=== PATIENT | female | born 2000 | race African-American/Black ===

== ENCOUNTER 2021-12-08 16:35 | Emergency (ER) | payer BC, SELFPAY ==
[2021-12-09 19:23] LABS: SARS-CoV-2 PCR by NAA DETECTED (NotDetected)
== END 2021-12-08 17:30 | disposition home or self-care (01) ==
LOC: CSHERS 16:35
DX: U07.1 COVID-19 (principal)
CPT/HCPCS: 87081; 87430; 99283; U0003; U0005

== ENCOUNTER 2022-03-18 05:59 | Emergency (ER) | payer BC, SELFPAY | END 2022-03-18 06:49 | disposition home or self-care (01) | LOC: CSHERS 05:59 | DX: K12.2 Cellulitis and abscess of mouth (principal) | CPT/HCPCS: 99283 ==

== ENCOUNTER 2022-05-26 20:03 | Emergency (ER) | payer BC, SELFPAY | END 2022-05-26 20:55 | disposition home or self-care (01) | LOC: CSHERS 20:03 | DX: K08.89 Other specified disorders of teeth and supporting structures (principal) | CPT/HCPCS: 99283 ==

== ENCOUNTER 2022-12-26 09:42 | Emergency (ER) | payer SELFPAY | END 2022-12-26 10:59 | disposition home or self-care (01) | LOC: CSHERS 09:42 | DX: J06.9 Acute upper respiratory infection, unspecified (principal); Z20.822 Contact with and (suspected) exposure to COVID-19; G43.909 Migraine, unspecified, not intractable, without status migrainosus | CPT/HCPCS: 99284; U0003; U0005 ==

== ENCOUNTER 2024-01-14 16:01 | Emergency (ER) | payer OTHER ==
[2024-01-14] MEDS ORDERED: Ondansetron PF 4 MG/2 ML Vial ONE (16:33)
[2024-01-14 16:58] LABS: #Eosinphils 0.1 10x3/uL (0.0-0.5); #Monocytes 0.5 10x3/uL (0.0-1.1); #Neutrophils 2.1 10x3/uL (1.5-8.4); %Basophils 0.7 % (0.0-2.0); %Eosinophils 1.2 % (0.0-6.0); %Lymphocytes 55.2 % (18.0-47.0); %Monocytes 7.6 % (0.0-10.0); %Neutrophils 35.1 % (40.0-75.0); Hematocrit 39.3 % (34.9-44.5); Hemoglobin 13.4 g/dL (12.0-15.5); Mean Corpuscular HGB CONC 34.1 g/dL (32.0-36.0); Mean Corpuscular Hemoglobin 31.2 pg (27.0-33.0); Mean Corpuscular Volume 91.6 fl (81.6-98.3); Mean Platelet Volume 9.5 fl (7.4-10.4); Platelet Count 307 10x3/uL (150-450); RBC Distribution Width 12.4 % (11.5-14.5); Red Blood Cell (RBC) Count 4.29 10x6/uL (3.90-5.03); White Blood Cell (WBC) Count 6.1 10x3/uL (3.5-10.5)
[2024-01-14 16:59] LABS: Bilirubin Neg (Negative); Blood, Urine 10 (Negative); Clarity Clear (Clear); Glucose, Urine (Dipstick) Normal (Negative); Ketone, Urine Negative (Negative); Leukocyte Negative (Negative); Nitrite Negative (Negative); Protein, Urine (Dipstick) 30 mg/dl (Neg-Trace); Specific Gravity, Urine 1.015 (1.005-1.030); pH, Urine 6.5 (5.0-9.0)
[2024-01-14 17:01] LABS: Pregnancy Test - Urine (BHCG) Negative (Negative); Pregu Control Background? CLEAR/WHITE (CLR/WHITE); Pregu Control Bar Appear? YES (CONTROL BAR); Specific Gravity 1.015 (1.002-1.036)
[2024-01-14 17:12] LABS: ALT (SGPT) 19 U/L (8-55); AST (SGOT) 28 U/L (5-34); Albumin 4.6 g/dL (3.5-5.0); Alkaline Phosphatase 44 U/L (40-110); Anion Gap 11 mmol/L (10-20); BUN (Urea Nitrogen) 20 mg/dL (7.0-18.7); Bilirubin, Total 0.4 mg/dL (0.2-1.2); Calc. Creatinine Clearance 0 mL/min (70-130); Calcium 9.5 mg/dL (7.8-10.44); Carbon Dioxide 26 mmol/L (22-29); Chloride 105 mmol/L (98-107); Estimated GFR 77; Globulin 3.5 g/dL (2.4-3.5); Glucose 94 mg/dL (70-105); Lipase 30 U/L (8-78); Potassium 3.4 mmol/L (3.5-5.1); Protein, Total 8.1 g/dL (6.0-8.3); Sodium 139 mmol/L (136-145)
[2024-01-14 17:16] LABS: Bacteria/HPF Rare-Few HPF (None Seen); CAUTI Indications for Culture Pelvic or flank pain; Mucous/LPF 1+ LPF (<2+); RBC/HPF 0-3 HPF (0-3); Squamous Epithelial 0-3 HPF (0-3); WBC/HPF 0-3 HPF (0-3)
[2024-01-14 17:17] LABS: Urine Culture Reflex No No
== END 2024-01-14 17:31 | disposition home or self-care (01) ==
LOC: CSHERS 16:01
DX: A08.4 Viral intestinal infection, unspecified (principal); Z55.6 Problems related to health literacy
CPT/HCPCS: 80053; 81001; 81025; 83690; 85025; 96361; 96374; J2405

== ENCOUNTER 2024-12-17 09:15 | Emergency (ER) | payer BC, OTHER ==
[2024-12-17] MEDS ORDERED: Acetaminophen 325 MG TAB ONE (10:10)
== END 2024-12-17 11:26 | disposition home or self-care (01) ==
LOC: CSHERS 09:15
DX: J02.9 Acute pharyngitis, unspecified (principal); J06.9 Acute upper respiratory infection, unspecified
CPT/HCPCS: 87081; 87428; 87430; 99283

== ENCOUNTER 2025-01-11 12:42 | Emergency (ER) | payer BC ==
[2025-01-11 13:34] LABS: Bilirubin Neg (Negative); Blood, Urine Negative (Negative); Clarity Clear (Clear); Glucose, Urine (Dipstick) Normal (Negative); Ketone, Urine Negative (Negative); Leukocyte Negative (Negative); Nitrite Negative (Negative); Protein, Urine (Dipstick) 15 mg/dl (Neg-Trace); Specific Gravity, Urine 1.015 (1.005-1.030); Urobilinogen Normal mg/dL (Less than 2); pH, Urine 6.5 (5.0-9.0)
[2025-01-11 13:35] LABS: Pregnancy Test - Urine (BHCG) Negative (Negative); Pregu Control Background? CLEAR/WHITE (CLR/WHITE); Pregu Control Bar Appear? YES (CONTROL BAR); Specific Gravity 1.015 (1.002-1.036)
[2025-01-11 13:41] LABS: Bacteria/HPF 1+ HPF (None Seen); CAUTI Indications for Culture Pelvic or flank pain; RBC/HPF 0-3 HPF (0-3); Squamous Epithelial 0-3 HPF (0-3); WBC/HPF 0-3 HPF (0-3)
[2025-01-11 13:42] LABS: Urine Culture Reflex No No
== END 2025-01-11 13:49 | disposition home or self-care (01) ==
LOC: CSHERS 12:42
DX: R35.0 Frequency of micturition (principal)
CPT/HCPCS: 81001; 81025; 99283

== ENCOUNTER 2025-07-24 20:44 | Emergency (ER) | payer BC ==
[2025-07-24 21:45] LABS: #Basophils Less than 0.03 10x3/uL (0.0-0.2); #Eosinophils 0.06 10x3/uL (0.0-0.5); #Monocytes 0.75 10x3/uL (0.0-1.1); #Neutrophils 5.82 10x3/uL (1.5-8.4); %Basophils 0.1 % (0.0-2.0); %Eosinophils 0.7 % (0.0-6.0); %Lymphocytes 22.2 % (18.0-47.0); %Monocytes 8.7 % (0.0-10.0); %Neutrophils 67.6 % (40.0-75.0); Hematocrit 28.4 % (34.9-44.5); Hemoglobin 10.0 g/dL (12.0-15.5); Mean Corpuscular Hemoglobin 33.1 pg (27.0-33.0); Mean Corpuscular Volume 94.0 fL (81.6-98.3); Platelet Count 223 10x3/uL (150-450); Red Blood Cell (RBC) Count 3.02 10x6/uL (3.90-5.03); White Blood Cell (WBC) Count 8.61 10x3/uL (3.5-10.5)
[2025-07-24 22:02] LABS: ALT (SGPT) 23 U/L (Less than 34); AST (SGOT) 20 U/L (11-34); Albumin 3.3 g/dL (3.1-4.5); Alkaline Phosphatase 52 U/L (40-110); Anion Gap 11 mmol/L (10-20); BUN (Urea Nitrogen) 9 mg/dL (7.0-18.7); Bilirubin, Total 0.1 mg/dL (0.3-1.2); Calc. Creatinine Clearance 0 mL/min (70-130); Calcium 9.0 mg/dL (7.8-10.44); Carbon Dioxide 20 mmol/L (22-29); Chloride 108 mmol/L (98-107); Globulin 3.3 g/dL (2.4-3.5); Glucose 92 mg/dL (70-105); Lipase 25 U/L (8-78); Magnesium 1.8 mg/dL (1.6-2.6); Potassium 3.5 mmol/L (3.5-5.1); Sodium 135 mmol/L (136-145)
== END 2025-07-24 22:28 | disposition home or self-care (01) ==
LOC: CSHERS 20:44
DX: O21.9 Vomiting of pregnancy, unspecified (principal); Z3A.23 23 weeks gestation of pregnancy
CPT/HCPCS: 80053; 82010; 83690; 83735; 85025; 99284

== ENCOUNTER 2025-08-01 13:12 | Emergency (ER) | payer BC | END 2025-08-01 14:16 | disposition home or self-care (01) | LOC: CSHERS 13:12 | DX: O99.612 Diseases of the digestive system complicating pregnancy, second trimester (principal); Z3A.25 25 weeks gestation of pregnancy | CPT/HCPCS: 99282 ==

== ENCOUNTER 2025-08-17 19:26 | Day surgery (SDC) | payer BC ==
[2025-08-17 19:53] VITALS: BMI 39.0
[2025-08-17] MEDS ORDERED: hydrALAZINE 20 MG/ML VIAL SLOW IVP PRN (20:21)
[2025-08-17 20:58] LABS: #Basophils Less than 0.03 10x3/uL (0.0-0.2); #Eosinophils 0.06 10x3/uL (0.0-0.5); #Monocytes 0.73 10x3/uL (0.0-1.1); #Neutrophils 5.20 10x3/uL (1.5-8.4); %Basophils 0.1 % (0.0-2.0); %Eosinophils 0.7 % (0.0-6.0); %Lymphocytes 26.2 % (18.0-47.0); %Monocytes 8.9 % (0.0-10.0); %Neutrophils 63.2 % (40.0-75.0); Hematocrit 28.6 % (34.9-44.5); Hemoglobin 9.7 g/dL (12.0-15.5); Mean Corpuscular Hemoglobin 31.9 pg (27.0-33.0); Mean Corpuscular Volume 94.1 fL (81.6-98.3); Platelet Count 238 10x3/uL (150-450); Red Blood Cell (RBC) Count 3.04 10x6/uL (3.90-5.03); White Blood Cell (WBC) Count 8.23 10x3/uL (3.5-10.5)
[2025-08-17 21:04] LABS: Protein, Urine Random Quant 19.0 mg/dL (1-14)
[2025-08-17 21:15] LABS: ALT (SGPT) 19 U/L (Less than 34); AST (SGOT) 17 U/L (11-34); Albumin 3.1 g/dL (3.1-4.5); Alkaline Phosphatase 55 U/L (40-110); Anion Gap 12 mmol/L (10-20); BUN (Urea Nitrogen) 9 mg/dL (7.0-18.7); Bilirubin, Total 0.1 mg/dL (0.3-1.2); Calc. Creatinine Clearance 207 mL/min (70-130); Calcium 8.7 mg/dL (7.8-10.44); Carbon Dioxide 21 mmol/L (22-29); Chloride 109 mmol/L (98-107); Globulin 3.7 g/dL (2.4-3.5); Glucose 83 mg/dL (70-105); Potassium 3.5 mmol/L (3.5-5.1); Sodium 138 mmol/L (136-145)
== END 2025-08-17 21:40 | disposition home or self-care (01) ==
LOC: CSHLD/OP 19:26
PROVIDERS: ATTEND Obstetrics & Gynecology
DX: O99.891 Other specified diseases and conditions complicating pregnancy (principal); M79.89 Other specified soft tissue disorders; Z3A.29 29 weeks gestation of pregnancy; Z79.899 Other long term (current) drug therapy
CPT/HCPCS: 36415; 80053; 82570; 84156; 85025

== ENCOUNTER 2025-08-31 06:27 | Day surgery (SDC) | payer BC ==
[2025-08-31] MEDS ORDERED: hydrALAZINE 20 MG/ML VIAL SLOW IVP PRN (07:21)
[2025-08-31 08:15] LABS: Protein, Urine Random Quant 21.0 mg/dL (1-14)
[2025-08-31 08:33] LABS: #Basophils Less than 0.03 10x3/uL (0.0-0.2); #Eosinophils 0.04 10x3/uL (0.0-0.5); #Monocytes 0.68 10x3/uL (0.0-1.1); #Neutrophils 5.57 10x3/uL (1.5-8.4); %Basophils 0.1 % (0.0-2.0); %Eosinophils 0.5 % (0.0-6.0); %Lymphocytes 20.3 % (18.0-47.0); %Monocytes 8.5 % (0.0-10.0); %Neutrophils 69.6 % (40.0-75.0); Hematocrit 27.5 % (34.9-44.5); Hemoglobin 9.2 g/dL (12.0-15.5); Mean Corpuscular Hemoglobin 31.5 pg (27.0-33.0); Mean Corpuscular Volume 94.2 fL (81.6-98.3); Platelet Count 230 10x3/uL (150-450); Red Blood Cell (RBC) Count 2.92 10x6/uL (3.90-5.03); White Blood Cell (WBC) Count 8.01 10x3/uL (3.5-10.5)
[2025-08-31 08:51] LABS: ALT (SGPT) 24 U/L (Less than 34); AST (SGOT) 17 U/L (11-34); Albumin 2.9 g/dL (3.1-4.5); Alkaline Phosphatase 55 U/L (40-110); Anion Gap 11 mmol/L (10-20); BUN (Urea Nitrogen) 6 mg/dL (7.0-18.7); Bilirubin, Total 0.1 mg/dL (0.3-1.2); Calc. Creatinine Clearance 258 mL/min (70-130); Calcium 8.6 mg/dL (7.8-10.44); Carbon Dioxide 22 mmol/L (22-29); Chloride 108 mmol/L (98-107); Globulin 3.3 g/dL (2.4-3.5); Glucose 92 mg/dL (70-105); Potassium 3.6 mmol/L (3.5-5.1); Sodium 137 mmol/L (136-145)
[2025-08-31 08:58] VITALS: BMI 40.4
== END 2025-08-31 09:00 | disposition home or self-care (01) ==
LOC: CSHLD/OP 06:27
PROVIDERS: ATTEND Obstetrics & Gynecology
DX: O12.03 Gestational edema, third trimester (principal); Z3A.29 29 weeks gestation of pregnancy; Z79.899 Other long term (current) drug therapy
CPT/HCPCS: 36415; 80053; 82570; 84156; 85025; 99283

== ENCOUNTER 2025-09-15 18:09 | Emergency (ER) | payer BC ==
[2025-09-15 19:30] LABS: #Basophils Less than 0.03 10x3/uL (0.0-0.2); #Eosinophils 0.04 10x3/uL (0.0-0.5); #Monocytes 0.84 10x3/uL (0.0-1.1); #Neutrophils 6.32 10x3/uL (1.5-8.4); %Basophils 0.1 % (0.0-2.0); %Eosinophils 0.4 % (0.0-6.0); %Lymphocytes 22.2 % (18.0-47.0); %Monocytes 8.9 % (0.0-10.0); %Neutrophils 67.2 % (40.0-75.0); Hematocrit 29.3 % (34.9-44.5); Hemoglobin 10.2 g/dL (12.0-15.5); Mean Corpuscular Hemoglobin 32.7 pg (27.0-33.0); Mean Corpuscular Volume 93.9 fL (81.6-98.3); Platelet Count 226 10x3/uL (150-450); Red Blood Cell (RBC) Count 3.12 10x6/uL (3.90-5.03); White Blood Cell (WBC) Count 9.41 10x3/uL (3.5-10.5)
[2025-09-15 19:44] LABS: ALT (SGPT) 18 U/L (Less than 34); AST (SGOT) 16 U/L (11-34); Albumin 3.2 g/dL (3.1-4.5); Alkaline Phosphatase 65 U/L (40-110); Anion Gap 8 mmol/L (10-20); BUN (Urea Nitrogen) 9 mg/dL (7.0-18.7); Bilirubin, Total 0.1 mg/dL (0.3-1.2); Calc. Creatinine Clearance 0 mL/min (70-130); Calcium 9.2 mg/dL (7.8-10.44); Carbon Dioxide 21 mmol/L (22-29); Chloride 108 mmol/L (98-107); Globulin 3.5 g/dL (2.4-3.5); Glucose 100 mg/dL (70-105); Potassium 3.4 mmol/L (3.5-5.1); Sodium 134 mmol/L (136-145)
[2025-09-15] MEDS ORDERED: Metoclopramide HCl 10 MG (2 mL) VIAL ONE (20:12)
[2025-09-15 20:24] LABS: Glucose, Urine (Dipstick) Normal (Negative); Leukocyte Negative (Negative); Protein, Urine (Dipstick) 30 mg/dl (Neg-Trace); Specific Gravity, Urine 1.025 (1.005-1.030)
[2025-09-15 20:32] LABS: Bacteria/HPF 3+ HPF (None Seen); CAUTI Indications for Culture Pelvic or flank pain; Mucous/LPF 4+ LPF (<2+); RBC/HPF 0-3 HPF (0-3); WBC/HPF 0-3 HPF (0-3)
[2025-09-15 20:33] LABS: Urine Culture Reflex No No
== END 2025-09-15 20:41 | disposition admitted as inpatient to this hospital (09) ==
LOC: CSHERS 18:09
DX: O99.891 Other specified diseases and conditions complicating pregnancy (principal); R51.9 Headache, unspecified; Z3A.31 31 weeks gestation of pregnancy
CPT/HCPCS: 80053; 81001; 85025; 93005; 96374; J2765

== ENCOUNTER 2025-09-15 20:40 | Day surgery (SDC) | payer BC ==
[2025-09-15] MEDS ORDERED: hydrALAZINE 20 MG/ML VIAL SLOW IVP PRN (20:42)
[2025-09-15 21:06] VITALS: BMI 39.4
== END 2025-09-15 22:32 | disposition home or self-care (01) ==
LOC: CSHLD/OP 20:40
PROVIDERS: ATTEND Obstetrics & Gynecology
DX: O99.891 Other specified diseases and conditions complicating pregnancy (principal); R03.0 Elevated blood-pressure reading, without diagnosis of hypertension; Z3A.31 31 weeks gestation of pregnancy; Z67.20 Type B blood, Rh positive; Z79.899 Other long term (current) drug therapy
CPT/HCPCS: 80053; 81001; 82570; 84156; 85025; 93005; 96374; 99284; J2765

== ENCOUNTER 2025-09-18 06:09 | Emergency (ER) | payer BC | END 2025-09-18 06:38 | disposition home or self-care (01) | LOC: CSHERS 06:09 | DX: O21.9 Vomiting of pregnancy, unspecified (principal); Z76.0 Encounter for issue of repeat prescription; Z3A.32 32 weeks gestation of pregnancy | CPT/HCPCS: 99283 ==

== ENCOUNTER 2025-10-08 10:59 | Day surgery (SDC) | payer BC ==
[2025-10-08 12:18] VITALS: BMI 40.6
[2025-10-08 13:06] LABS: #Basophils Less than 0.03 10x3/uL (0.0-0.2); #Eosinophils 0.04 10x3/uL (0.0-0.5); #Monocytes 0.84 10x3/uL (0.0-1.1); #Neutrophils 5.84 10x3/uL (1.5-8.4); %Basophils 0.2 % (0.0-2.0); %Eosinophils 0.5 % (0.0-6.0); %Lymphocytes 18.7 % (18.0-47.0); %Monocytes 10.0 % (0.0-10.0); %Neutrophils 69.4 % (40.0-75.0); Hematocrit 30.5 % (34.9-44.5); Hemoglobin 10.4 g/dL (12.0-15.5); Mean Corpuscular Hemoglobin 32.7 pg (27.0-33.0); Mean Corpuscular Volume 95.9 fL (81.6-98.3); Platelet Count 218 10x3/uL (150-450); Red Blood Cell (RBC) Count 3.18 10x6/uL (3.90-5.03); White Blood Cell (WBC) Count 8.41 10x3/uL (3.5-10.5)
[2025-10-08 13:38] LABS: ALT (SGPT) 17 U/L (Less than 34); AST (SGOT) 17 U/L (11-34); Albumin 3.1 g/dL (3.1-4.5); Alkaline Phosphatase 77 U/L (40-110); Anion Gap 12 mmol/L (10-20); BUN (Urea Nitrogen) 5 mg/dL (7.0-18.7); Bilirubin, Total 0.1 mg/dL (0.3-1.2); Calc. Creatinine Clearance 249 mL/min (70-130); Calcium 9.2 mg/dL (7.8-10.44); Carbon Dioxide 20 mmol/L (22-29); Chloride 109 mmol/L (98-107); Globulin 3.4 g/dL (2.4-3.5); Glucose 82 mg/dL (70-105); Potassium 3.6 mmol/L (3.5-5.1); Sodium 137 mmol/L (136-145)
== END 2025-10-08 14:08 | disposition home or self-care (01) ==
LOC: CSHLD/OP 10:59
PROVIDERS: ATTEND Obstetrics & Gynecology
DX: O99.891 Other specified diseases and conditions complicating pregnancy (principal); R03.0 Elevated blood-pressure reading, without diagnosis of hypertension; Z3A.34 34 weeks gestation of pregnancy
CPT/HCPCS: 36415; 80053; 82570; 84156; 85025

== ENCOUNTER 2025-10-26 17:51 | Inpatient (IN) | payer BC ==
[~2025-10-26 17:51] MED LIST: Bupivacaine 0.25% HCL 30 ML VIAL ONE
[2025-10-26] MEDS ORDERED: hydrALAZINE 20 MG/ML VIAL SLOW IVP PRN (18:18)
[2025-10-26] MEDS ORDERED: Acetaminophen 500 MG TAB PO PRN (18:18)
[2025-10-26] MEDS ORDERED: Tranexamic Acid 1,000 MG/10 ML VIAL IVP PRN (18:18)
[2025-10-26] MEDS ORDERED: Carboprost 250 MCG/ML AMP IM PRN (18:18)
[2025-10-26] MEDS ORDERED: Diphenoxylate HCl/Atropine Tablet PO PRN ×2 (18:18)
[2025-10-26] MEDS ORDERED: Penicillin G Potassium 5 MILL.UNITS in Sodium Chloride 0.9% 100 ML IVPB SCH (18:18)
[2025-10-26] MEDS ORDERED: Lidocaine 1% (PF) 30 ML VIAL SC PRN (18:18)
[2025-10-26] MEDS ORDERED: Calcium Gluc 4.6 MEQ/10 ML (100 MG/ML) SLOW IVP PRN (18:18)
[2025-10-26] MEDS ORDERED: Oxytocin 30 units/NS 500 ML 500 ML IV SCH (18:18)
[2025-10-26 18:44] VITALS: BMI 42.0
[2025-10-26 19:32] LABS: Hematocrit 30.4 % (34.9-44.5); Hemoglobin 10.6 g/dL (12.0-15.5); Mean Corpuscular Hemoglobin 33.0 pg (27.0-33.0); Mean Corpuscular Volume 94.7 fL (81.6-98.3); Platelet Count 235 10x3/uL (150-450); Red Blood Cell (RBC) Count 3.21 10x6/uL (3.90-5.03); White Blood Cell (WBC) Count 7.48 10x3/uL (3.5-10.5)
[2025-10-26 19:41] LABS: ALT (SGPT) 26 U/L (Less than 34); AST (SGOT) 21 U/L (11-34); Albumin 3.4 g/dL (3.1-4.5); Alkaline Phosphatase 91 U/L (40-110); Anion Gap 14 mmol/L (10-20); BUN (Urea Nitrogen) 11 mg/dL (7.0-18.7); Bilirubin, Total 0.1 mg/dL (0.3-1.2); Calc. Creatinine Clearance 234 mL/min (70-130); Calcium 9.5 mg/dL (7.8-10.44); Carbon Dioxide 18 mmol/L (22-29); Chloride 109 mmol/L (98-107); Globulin 3.3 g/dL (2.4-3.5); Glucose 108 mg/dL (70-105); Potassium 3.9 mmol/L (3.5-5.1); Sodium 137 mmol/L (136-145)
[2025-10-26 20:01] LABS: Syphilis Antibody Index 0.08 S/CO (<1.00 Non-Reactive)
[2025-10-26 20:02] LABS: Hep B Surf Ag - L&D Non-Reactive S/CO (NonReactive)
[2025-10-27] MEDS: Ondansetron PF 4 MG/2 ML Vial IVP PRN (01:38)
[2025-10-27] MEDS: Pen G 2.5 MILL.UNITS/50 ML BAG IVPB SCH ×2 (01:50→12:14)
[2025-10-27] MEDS: Penicillin G Potassium 5 MILL.UNITS in Sodium Chloride 0.9% 100 ML IVPB SCH (08:36)
[2025-10-27] MEDS: fentaNYL/Ropivacaine Epidural 100 ML ONE (10:23)
[2025-10-27] MEDS: Oxytocin 30 units/NS 500 ML 500 ML IV SCH (13:20)
[2025-10-27] MEDS ORDERED: Azithromycin 500 MG VIAL ONE (16:26)
[2025-10-27] MEDS ORDERED: CEFAZOLIN 2 GM VIAL ONE (16:26)
[2025-10-27] MEDS ORDERED: Bicitra 30 ML UDCUP PO PRN (16:36)
[2025-10-27] MEDS ORDERED: Famotidine/PF 20 mg/2ml Vial SLOW IVP PRN (16:36)
[2025-10-27] MEDS ORDERED: Dexamethasone 10 MG/ML VIAL ONE (16:43)
[2025-10-27] MEDS ORDERED: Oxytocin 10 UNITS/ML VIAL ONE (16:43)
[2025-10-27] MEDS ORDERED: PHENYLEPHRINE-NS 100 MCG/ML 10 ML SYRINGE ONE (16:43)
[2025-10-27] MEDS ORDERED: Azithromycin 500 MG in Sodium Chloride 0.9% 250 ML 250 ML IVPB SCH (16:45)
[2025-10-27] MEDS ORDERED: Ketorolac Tromethamine 30 MG (1 mL) VIAL IVP PRN (17:30)
[2025-10-27] MEDS ORDERED: Communication Order-Pharmacy FS SCH (17:30)
[2025-10-27] MEDS ORDERED: diphenhydrAMINE 50 MG/ML VIAL IVP PRN (17:30)
[2025-10-27] MEDS ORDERED: Ondansetron PF 4 MG/2 ML Vial IVP PRN ×2 (17:30→17:40)
[2025-10-27] MEDS ORDERED: HYDROmorphone 0.5 MG/0.5 ML SYRINGE SLOW IVP PRN (17:30)
[2025-10-27] MEDS ORDERED: Lanolin Ointment 7 GM TUBE TOP PRN (17:40)
[2025-10-27] MEDS ORDERED: hydrALAZINE 20 MG/ML VIAL SLOW IVP PRN (17:40)
[2025-10-27] MEDS ORDERED: Oxytocin 30 units/NS 500 ML 500 ML IV SCH (17:45)
[2025-10-27] MEDS: Ferrous Sulfate 325 MG TAB PO SCH (22:00)
[2025-10-28 03:49] LABS: Hematocrit 28.8 % (34.9-44.5); Hemoglobin 9.7 g/dL (12.0-15.5); Mean Corpuscular Hemoglobin 31.8 pg (27.0-33.0); Mean Corpuscular Volume 94.4 fL (81.6-98.3); Platelet Count 234 10x3/uL (150-450); Red Blood Cell (RBC) Count 3.05 10x6/uL (3.90-5.03); White Blood Cell (WBC) Count 16.24 10x3/uL (3.5-10.5)
[2025-10-28] MEDS: Ketorolac Tromethamine 30 MG (1 mL) VIAL IVP PRN (05:35)
[2025-10-28] MEDS ORDERED: HYDROcodone/Acetaminophen 5/325 mg Tablet PO PRN (07:28)
[2025-10-28] MEDS: HYDROcodone/Acetaminophen 5/325 mg Tablet PO PRN (08:15)
[2025-10-28] MEDS: Simethicone Chewable 80 MG TAB PO PRN (08:39)
[2025-10-28] MEDS: Ibuprofen 800 MG TAB PO PRN (13:18)
[2025-10-28] MEDS ORDERED: Ibuprofen 800 MG TAB PO SCH (22:00)
[2025-10-29 08:18] VITALS: BP 135/85; TEMP 98.2
== END 2025-10-29 11:25 | disposition home or self-care (01) | DRG 788 ==
LOC: CSHLD 17:51 → CSHPP 10-27 20:30
PROVIDERS: ADMIT Obstetrics & Gynecology; ATTEND Obstetrics & Gynecology
PROC: 10D00Z1 Extraction of Products of Conception, Low, Open Approach (ICD-10-PCS; principal; 2025-10-27)
PROC: 4A1HXCZ Monitoring of Products of Conception, Cardiac Rate, External Approach (ICD-10-PCS; 2025-10-27)
DX: O13.4 Gestational [pregnancy-induced] hypertension without significant proteinuria, complicating childbirth (principal); O76 Abnormality in fetal heart rate and rhythm complicating labor and delivery; O99.824 Streptococcus B carrier state complicating childbirth; D27.1 Benign neoplasm of left ovary; Z3A.37 37 weeks gestation of pregnancy; Z79.899 Other long term (current) drug therapy; Z37.0 Single live birth
CPT/HCPCS: 36415; 51702; 80053; 85027; 86780; 86850; 86900; 86901; 87340; 88305; J0665; J1100; J1885; J2274; J2405; J2540; J2550; J2590; J3010; J3490